=== PATIENT | female | born 1990 | race Asian ===

== ENCOUNTER → 2023-01-20 | Outpatient (CLI) | payer OTHER ==
[2023-01-20 09:00] LABS: ESTRADIOL 139.9 PG/ML
[2023-01-20 09:32] LABS: PROGESTERONE 58.21 NG/ML
== END ==
LOC: M LAB 08:04
PROVIDERS: ATTEND Obstetrics & Gynecology Reproductive Endocrinology
DX: Z31.49 Encounter for other procreative investigation and testing (principal)

== ENCOUNTER → 2023-01-25 | Outpatient (CLI) | payer OTHER ==
[2023-01-25 08:14] LABS: HCG, SERUM QUANTITATIVE < 2.6 MIU/ML (<4.2)
[2023-01-25 08:18] LABS: PROGESTERONE 50.94 NG/ML
== END ==
LOC: M LAB 07:26
PROVIDERS: ATTEND Obstetrics & Gynecology Reproductive Endocrinology
DX: Z32.00 Encounter for pregnancy test, result unknown (principal)

== ENCOUNTER → 2023-04-01 | Outpatient (CLI) | payer OTHER ==
[2023-04-01 10:02] LABS: HCG, SERUM QUANTITATIVE < 2.6 MIU/ML (<4.2)
[2023-04-01 10:06] LABS: PROGESTERONE 26.91 NG/ML
== END ==
LOC: M LAB 09:09
PROVIDERS: ATTEND Obstetrics & Gynecology Reproductive Endocrinology
DX: Z32.00 Encounter for pregnancy test, result unknown (principal)